=== PATIENT | female | born 1940 | race Caucasian/White ===

== ENCOUNTER 2024-01-18 03:19 | Day surgery (SDC) | payer MEDICARE, SELFPAY ==
[2024-01-07 10:43] VITALS: BMI 30.8
[2024-01-18 07:58] VITALS: BP 120/77; PULSE 58; RESP 16; TEMP 35.8; O2SAT 98; BMI 30.9
[2024-01-18] MEDS: LACTATED RINGERS 1,000 ML 150 ML IV CONT (08:24)
--- NOTE | 2024-01-18 08:28 | WPDANESEPPF ---
Anes - Initial Pre Proc Eval Procedure: Operation Date: 01/18/24 09:00 Proposed Procedures p Esophagogastroduodenoscopy - Leoncio Garcia MD Date/Time: 01/18/24 08:28 Surgeon: Leoncio Garcia MD Pre Op Diagnosis: Epigastric Pain Patient Data Age: 83 Gender: F Height: 1.65 m Weight: 84.5 kg Last Vital Signs Temp 35.8 C L 01/18/24 07:58 Pulse 58 L 01/18/24 07:58 Resp 16 01/18/24 07:58 BP 120/77 01/18/24 07:58 Pulse Ox 98 01/18/24 07:58 O2 Del Method Room Air 01/18/24 07:58 Allergies Allergy/AdvReac Type Severity Reaction Status Date / Time caffeine Allergy Severe Swelling Verified 01/18/24 08:05 of Lip/Tongue/Throat latex Allergy Severe Hives Verified 01/18/24 08:05 Home Medications Medication Instructions Recorded Confirmed Type aspirin 81 mg tablet,delayed 81 mg PO DAILY 01/07/24 01/18/24 History release cholecalciferol (vitamin D3) 25 25 mcg PO DAILY 01/07/24 01/18/24 History mcg (1,000 unit) tablet (Vitamin D3) citalopram 20 mg tablet 20 mg PO DAILY 01/07/24 01/18/24 History coenzyme Q10 100 mg capsule 100 mg PO DAILY 01/07/24 01/18/24 History (CoQ-10) ezetimibe 10 mg tablet 10 mg PO DAILY 01/07/24 01/18/24 History famotidine 40 mg tablet 40 mg PO DAILY 01/07/24 01/18/24 History losartan 25 mg tablet 25 mg PO DAILY 01/07/24 01/18/24 History omeprazole 20 mg capsule,delayed 20 mg PO DAILY 01/07/24 01/18/24 History release rosuvastatin 20 mg tablet 20 mg PO DAILY 01/07/24 01/18/24 History vit A 7,160 unit-vit C 113 mg-vit 1 tablet PO DAILY 01/07/24 01/18/24 History E 100 djln-lmuy-kqfkin tablet Patient hx anesthesia problems: none Family hx anesthesia problems: none Results Review: All pre-operative results and documents have been reviewed as part of the pre-operative evaluation. [facility] Past Medical History Medical History (Updated 01/18/24 @ 08:29 by Sergio Marcelo MD) CHF (congestive heart failure) HTN (hypertension) Obesity Surgical History Surgical History (Updated 01/18/24 @ 08:31 by Sergio Marcelo MD) H/O: hysterectomy History of cholecystectomy Social History Social History (Updated 01/18/24 @ 08:31 by Sergio Marcelo MD) Smoking packs per day: 1 Smoking cigarettes per day: 20.0 Years smoked: 30 Smoking pack-years: 30.00 Smoking status: Former smoker Alcohol intake: current Drinks per week: 14 Living arrangements: with family Spiritual care concerns: No Anes - Eval Final PreProcedure Day of Procedure 01/18/24 08:28 Patient weight: obese Heart: regular rate and rhythm Lungs: clear to auscultation Airway: Mallampati scale class 1 Neurological: alert and oriented Last oral intake: >/= 8 hours ASA classification: III Emergent: no Anesthetic plan: proceed Anesthesia type and monitoring: general GIVS and standard monitoring Results Review: All pre-operative results and documents have been reviewed as part of the pre-operative evaluation. Informed Consent: The patient's anesthetic plan and its attendant risks and benefits were discussed with the patient/family/POA. Questions were solicited and answers provided to the satisfaction of the patient/family/POA.
--- NOTE | 2024-01-18 09:30 | PM.IMHP ---
H&P: HPI History of Present Illness Date/Time: 01/18/24 09:30 Chief Complaint: Recurrent epigastric pain. Narrative: This patient has been suffering from epigastric/ back pain for several years. She is known to have a hiatal hernia and does complain of heartburn occasionally but not associated with the pain episodes. These can occur her in the middle of the night waking her up from sleep. She is here for EGD. Review of Systems Review of Systems: All systems reviewed & are unremarkable except as noted in HPI and below PMFSH Past Medical History Medical History (Updated 01/18/24 @ 09:31 by Leoncio Garcia MD) CHF (congestive heart failure) HTN (hypertension) Obesity Surgical History Surgical History (Updated 01/18/24 @ 08:31 by Sergio Marcelo MD) H/O: hysterectomy History of cholecystectomy Social History Social History (Updated 01/18/24 @ 08:31 by Sergio Marcelo MD) Smoking packs per day: 1 Smoking cigarettes per day: 20.0 Years smoked: 30 Smoking pack-years: 30.00 Smoking status: Former smoker Alcohol intake: current Drinks per week: 14 Living arrangements: with family Spiritual care concerns: No Meds Home Medications and Allergies Home Medications Medication Instructions Recorded Confirmed Type aspirin 81 mg tablet,delayed 81 mg PO DAILY 01/07/24 01/18/24 History release cholecalciferol (vitamin D3) 25 25 mcg PO DAILY 01/07/24 01/18/24 History mcg (1,000 unit) tablet (Vitamin D3) citalopram 20 mg tablet 20 mg PO DAILY 01/07/24 01/18/24 History coenzyme Q10 100 mg capsule 100 mg PO DAILY 01/07/24 01/18/24 History (CoQ-10) ezetimibe 10 mg tablet 10 mg PO DAILY 01/07/24 01/18/24 History famotidine 40 mg tablet 40 mg PO DAILY 01/07/24 01/18/24 History losartan 25 mg tablet 25 mg PO DAILY 01/07/24 01/18/24 History omeprazole 20 mg capsule,delayed 20 mg PO DAILY 01/07/24 01/18/24 History release rosuvastatin 20 mg tablet 20 mg PO DAILY 01/07/24 01/18/24 History vit A 7,160 unit-vit C 113 mg-vit 1 tablet PO DAILY 01/07/24 01/18/24 History E 100 doiv-exrg-tyzizs tablet Allergies Allergy/AdvReac Type Severity Reaction Status Date / Time caffeine Allergy Severe Swelling Verified 01/18/24 08:05 of Lip/Tongue/Throat latex Allergy Severe Hives Verified 01/18/24 08:05 Vital Signs Vital Signs - 24 hr 01/18/24 07:58 Temperature 96.5 F L Pulse Rate 58 L Respiratory Rate 16 Blood Pressure 120/77 Pulse Oximetry 98 Oxygen Delivery Room Air Assessment and Plan Assessment and plan (1) Epigastric pain: Code(s): R10.13 - Epigastric pain Status: Acute Plan The patient is deemed a good candidate for the procedure. Consent signed. Will proceed.
[2024-01-18 09:51] VITALS: BP 121/67; PULSE 61; RESP 16; O2SAT 98
[2024-01-18 10:01] VITALS: BP 108/57; PULSE 56; RESP 19; O2SAT 93
[2024-01-18 10:11] VITALS: BP 129/55; PULSE 51; RESP 19; O2SAT 99
== END 2024-01-18 10:23 | disposition home or self-care (01) ==
PROVIDERS: PCP Internal Medicine; Visit Provider Internal Medicine Gastroenterology
PROC: 0DJ08ZZ Inspection of Upper Intestinal Tract, Via Natural or Artificial Opening Endoscopic (ICD-10-PCS; CPT 43235; principal; 2024-01-18 09:00)
DX: K29.50 Unspecified chronic gastritis without bleeding (principal); K44.9 Diaphragmatic hernia without obstruction or gangrene; K31.89 Other diseases of stomach and duodenum; I11.0 Hypertensive heart disease with heart failure; I50.9 Heart failure, unspecified; E66.9 Obesity, unspecified; Z68.31 Body mass index [BMI] 31.0-31.9, adult; Z79.82 Long term (current) use of aspirin; Z98.890 Other specified postprocedural states; Z90.49 Acquired absence of other specified parts of digestive tract; Z87.891 Personal history of nicotine dependence
CPT/HCPCS: 43239; 88305; J2003; J2704; J7120